=== PATIENT | male | born 1950 | race Caucasian/White ===

== ENCOUNTER 2020-08-12 09:32 | Inpatient (IN) ==
--- NOTE | 2020-07-13 13:08 | PAT Medication Instructions ---
Medication Instructions Date of Service July 13, 2020 Home Medications Medication Instructions Recorded lisinopril 10 mg tablet 10 mg PO DAILY #90 tab 06/24/20 pantoprazole 40 mg tablet,delayed 40 mg PO DAILY #90 tab 06/24/20 release cholecalciferol (vitamin D3) 50 mcg (2,000 unit) capsule 2,000 units PO HS levothyroxine 100 mcg tablet 100 mcg PO QAM lisinopril 10 mg tablet 10 mg PO DAILY pantoprazole 40 mg tablet,delayed release 40 mg PO DAILY DO NOT take the morning of surgery lisinopril 10 mg tablet 10 mg PO DAILY Take morning of surgery With a small sip of water, OTHERWISE NOTHING TO EAT OR DRINK AFTER MIDNIGHT: levothyroxine 100 mcg tablet 100 mcg PO QAM pantoprazole 40 mg tablet,delayed release 40 mg PO DAILY Take evening before surgery cholecalciferol (vitamin D3) 50 mcg (2,000 unit) capsule 2,000 units PO HS Other Notes If you have any questions please call us at [phone] or [phone] or [phone] or [phone]
--- NOTE | 2020-07-14 11:52 | Anesthesiology Consultation ---
Date of Service July 14, 2020 Assessment & Plan (1) Encounter for pre-operative examination: COVID Status: As of 07/14 assessment, patient denies travel to endemic area, known exposure/sick contacts, or symptoms of COVID19. Patient instructed that they and their household members must follow strict social distancing guidelines, wear a mask in public and avoid travel/events/gatherings for 14 days prior to surgery. Preoperative COVID19 testing to be completed prior to surgery per surgeon's arrangements. Patient made aware to self-isolate as much as possible between COVID testing and surgery. Patient is scheduled for his second COVID vaccination the day before his surgery. He was advised to move this date due to the possibility of adverse side effects the day after the injection. LUMBAR SCOLIOSIS -- possible difficult SAB. Chart Review Chart Review: Acceptable Risk for Surgery and Patient seen in Pre Admission Testing Teaching & Discussion Instructed NPO after midnight before surgery, except medications with 15 cc of water. Medication instructions provided according to the PAT guidelines. History Surgery Operation Date: 08/12/20 09:50 Proposed Procedures p Ashok Total Knee Arthroplasty - Torrey Beck MD Height/Weight Height: 5 ft 8 in Weight: 76.5 kg Allergies Allergy/AdvReac Type Severity Reaction Status Date / Time No Known Drug Allergies Allergy Verified 07/13/20 08:16 Medications Home Medications Medication Instructions Recorded Confirmed Last Taken cholecalciferol (vitamin D3) 50 2,000 units PO HS #30 cap 01/25/19 07/13/20 Unknown mcg (2,000 unit) capsule levothyroxine 100 mcg tablet 100 mcg PO QAM #30 tab 12/10/19 07/13/20 Unknown lisinopril 10 mg tablet 10 mg PO DAILY #90 tab 06/24/20 07/13/20 Unknown pantoprazole 40 mg tablet,delayed 40 mg PO DAILY #90 tab 06/24/20 07/13/20 Unknown release Past Medical History Medical History Acid reflux Benign essential hypertension Cervical stenosis of spinal canal History of anxiety 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 Left bundle branch block Osteoarthritis Postoperative hypothyroidism Scoliosis Vitamin D deficiency Exercise / Class Metabolic Activity II 4-5 Yardwork/Stairs/Walk up hill Past Family History Family History (Updated 07/13/20 @ 08:25 by Latasha Villagomez RN) Father Cardiac disorder Brother Clotting disorder Mother Multiple sclerosis Other No family history of adverse response to anesthesia Past Surgical History Surgical History History of colonoscopy History of esophagogastroduodenoscopy (EGD) History of herniorrhaphy INGUINAL History of thyroidectomy, total History of tooth extraction Hx of fusion of cervical spine S/P rotator cuff repair (2013) RT Status post hernia repair Past Anesthesia History No Hx of Anesthesia Complications and No Family Hx of Anesthesia Complications History of PONV No Hx of PONV and No Hx of Motion Sickness Social History Smoking Status: Never smoker Do You Dip or Chew Tobacco: No Hx Alcohol Use: Yes Alcohol type: beer alcohol intake frequency: a few times a week Hx Substance Use: No substance use type: does not use Review of Systems Pt denies any recent chest pain, shortness of breath, palpitations, cough, fever, URI, or uncontrolled acid reflux (controlled with PPI). 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 ENMT Mouth: + chipped teeth (many molars broken/grond down); no dental restorations and no loose teeth Thyromental Distance: < 3.5 Finger Breadths (3) Mallampati Class: II Neck normal visual inspection; neck extension not limited Respiratory normal respiratory effort, lungs clear to auscultation Cardiovascular Rate/Rhythm: regular rate and regular rhythm Heart Sounds: + murmur (I/ systolic) Vessels: no carotid bruit Musculoskeletal Spine: + scoliosis (mild lumbar) Testing Laboratory Results 07/14/20 12:14 07/14/20 12:14 PT 9.9 Seconds (9.0-12.0) 07/14/20 12:14 INR 1.0 (0.9-1.1) 07/14/20 12:14 APTT 27.8 Seconds (21.0-31.0) 07/14/20 12:14 Urine Color Yellow 07/14/20 12:14 Urine Appearance Cloudy (Clear) A 07/14/20 12:14 Urine pH 6.0 (4.5-7.5) 07/14/20 12:14 Ur Specific [facility] 1.009 (1.000-1.030) 07/14/20 12:14 Urine Protein Trace (Negative) H 07/14/20 12:14 Urine Glucose (UA) Negative (Negative) 07/14/20 12:14 Urine Ketones Negative (Negative) 07/14/20 12:14 Urine Nitrite Negative (Negative) 07/14/20 12:14 Ur Leukocyte Esterase Negative (Negative) 07/14/20 12:14 Urine WBC (Auto) >30 /hpf (0-5) H 07/14/20 12:14 Urine RBC (Auto) 0-4 /hpf (0-4) 07/14/20 12:14 U Hyaline Cast (Auto) 5-10 /lpf (0-5) H 07/14/20 12:14 U Epithel Cells (Auto) 5-10 /lpf (0-5) H 07/14/20 12:14 Urine Bacteria (Auto) 1+ (Negative) H 07/14/20 12:14 Electrocardiogram Date: 07/14/20 Sinus bradycardia 55 bpm with premature supraventricular complexes. Incomplete left bundle branch block. Compared with EKG 07/07/2014, premature supraventricular complexes are now present. Chest X-Ray Date: 07/14/20 Findings: + NAD FINDINGS: Cardiomediastinal and hilar silhouettes are unchanged. Suggested hiatal hernia. No pneumothorax, pleural effusion, overt pulmonary edema or airspace c onsolidation to suggest pneumonia. Mild left lung base atelectasis/scarring. Degenerative changes of the shoulders and spine. Cervical spinal fusion hardware. IMPRESSION: No acute process. Echocardiogram Date: 11/29/13 EF: 60% Normal LV size and systolic function. Mild anteroseptal hypokinesis. Normal right heart size and function. No significant valvular stenosis or regurgitation. Mild calculated pulmonary hypertension. Stress Test Date: 11/27/13 Resting EKG showed normal sinus rhythm with left bundle branch block. Nondiagnostic stress EKG. Normal SPECT perfusion imaging. No significant ischemia detected. Normal LV systolic function. Pharmacologic stress nuclear study is normal. The gated study showed the EF was 60-65%.
--- NOTE | 2020-07-14 12:49 | XRay Report ---
XR chest Pre-admission PA/Lat HISTORY: 69 years-old Male pat preoperative exam. No acute chest complaints COMPARISON: Chest radiographs 07/07/2014 TECHNIQUE: PA and lateral views of the chest FINDINGS: Cardiomediastinal and hilar silhouettes are unchanged. Suggested hiatal hernia. No pneumothorax, pleu ral effusion, overt pulmonary edema or airspace consolidation to suggest pneumonia. Mild left lung ba se atelectasis/scarring. Degenerative changes of the shoulders and spine. Cervical spinal fusion hard [place]. IMPRESSION: No acute process. ACT 112: Negative or not required by law. The above report was generated using voice recognition software. It may contain grammatical, syntax o r spelling errors. Electronically signed by: Lakhwinder Mccracken M.D. 07/14/2020 12:48 PM
[2020-07-14 15:03] LABS: Basophils # (auto) 0.03 K/uL (0-0.2); Basophils % (auto) 0.5 %; Eosinophils # (auto) 0.24 K/uL (0-0.5); Eosinophils % (auto) 3.9 %; Hematocrit (blood only) 46.1 % (42-52); Hemoglobin 15.6 g/dL (14.0-18.0); Immature Granulocytes # (auto) 0.01 K/uL (0.00-0.02); Immature Granulocytes % (auto) 0.2 %; Lymphocytes # (auto) 1.69 K/uL (1.2-3.4); Lymphocytes % (auto) 27.4 %; Mean Corpuscular Hemoglobin 31.5 pg (25-34); Mean Corpuscular Hgb Conc 33.8 g/dL (32-36); Mean Corpuscular Volume 93.1 fL (80-100); Mean Platelet Volume 10.3 fL (7.4-10.4); Monocytes # (auto) 0.88 K/uL (0.11-0.59); Monocytes % (auto) 14.3 %; Neutrophils # (auto) 3.32 K/uL (1.4-6.5); Neutrophils % (auto) 53.7 %; Platelet Count 411 K/uL (130-400); RDW Coefficient of Variation 13.4 % (11.5-14.5); RDW Standard Deviation 45.6 fL (36.4-46.3); Red Blood Count 4.95 M/uL (4.7-6.1); White Blood Count 6.17 K/uL (4.8-10.8)
[2020-07-14 15:10] LABS: Appearance Urine Cloudy (Clear); Bacteria Urine Automated 1+ (Negative); Bilirubin Urine Negative (Negative); Blood Urine Negative (Negative); Color Urine Yellow; Glucose Urine UA Negative (Negative); Ketones Urine Negative (Negative); Leukocyte Esterase Urine Negative (Negative); Nitrite Urine Negative (Negative); Protein Urine Trace (Negative); RBC Urine Automated 0-4 /hpf (0-4); Specific Gravity Urine 1.009 (1.000-1.030); Urobilinogen Urine Negative (Negative); WBC Urine Automated >30 /hpf (0-5)
[2020-07-14 15:18] LABS: Partial Thromboplastin Ratio 1.1; Partial Thromboplastin Time 27.8 Seconds (21.0-31.0); Prothrombin Time 9.9 Seconds (9.0-12.0)
--- NOTE | 2020-07-14 15:19 | Electrocardiogram Report ---
Test Reason : Blood Pressure : / mmHG Vent. Rate : 055 BPM Atrial Rate : 055 BPM P-R Int : 202 ms QRS Dur : 110 ms QT Int : 476 ms P-R-T Axes : 060 071 032 degrees QTc Int : 455 ms Sinus bradycardia with Premature supraventricular complexes Incomplete left bundle block Abnormal ECG When compared with ECG of 07-JUL-2014 11:01, Premature supraventricular complexes are now Present Confirmed by David Gaona ([id number]) on 07/14/2020 3:18:36 PM Referred By: Torrey Beck Confirmed By:David Gaona
[2020-07-14 15:31] LABS: Albumin Level 3.7 gm/dl (3.4-5.0); BUN Creatinine Ratio 20.1 (10-20); Calcium 9.4 mg/dl (8.5-10.1); Creatinine Clr Calc Pharmacy 73.1 ml/min; Est GFR (African American) 98.6; Est GFR (Non-African American) 85.1; Potassium 4.4 mmol/L (3.5-5.1)
[2020-07-15 06:06] LABS: Estimated Average Glucose 111 mg/dl; Hemoglobin A1C 5.5 % (4.5-5.6)
--- NOTE | 2020-08-11 18:42 | History & Physical Report ---
Date of Service August 11, 2020 Assessment & Plan (1) Primary osteoarthritis of right knee: Treatment options discussed. He has failed conservative measures as above. He would like to proceed with surgical intervention. Risks, benefits and alternatives to surgery including but not limited to infection, DVT, pain, stiffness, need for revision surgery, damage to blood vessels, damage to nerves, PE, , were discussed with the patient and they wish to proceed. Plan for right total knee arthroplasty at [facility] on 08/13/[address] Beck. Will plan on HHPT post discharge. ASA 81mg BID x 1 mo for DVT prophylaxis. All questions answered. He will follow up post operatively. History of Present Illness Chief Complaint: Right knee pain Primary Care Provider: Michell Romeo, 69 year old male with PMHx significant for HTN, hx of thyroid Ca with hypothyroidism post thyroidectomy, GERD, HTN, OA who presents with ongoing right knee pain. Pain is interfering with his daily activities. He has failed conservative measures including anti-inflammatories and injections. He would like to proceed with knee replacement. Patient denies headaches, sweats, fevers, chills, double vision, blurred vision, cough, sore throat, dysphagia, chest pain, sob, wheezing, n/v/d/c, numbness, tingling, fatigue, urinary symptoms, mood disorders. ROS positive for right knee pain and stiffness. Allergies Allergy/AdvReac Type Severity Reaction Status Date / Time No Known Drug Allergies Allergy Verified 08/10/20 10:20 Home Medications Medication Instructions Recorded Confirmed Type cholecalciferol (vitamin D3) 50 2,000 units PO HS #30 cap 01/25/19 08/10/20 History mcg (2,000 unit) capsule levothyroxine 100 mcg tablet 100 mcg PO QAM #30 tab 12/10/19 08/10/20 History pantoprazole 40 mg tablet,delayed 40 mg PO DAILY #90 tab 06/24/20 08/10/20 Rx release famotidine 40 mg tablet 40 mg PO BID #60 tab 08/10/20 08/10/20 Rx lisinopril 20 mg tablet 20 mg PO DAILY #90 tab 08/10/20 08/10/20 Rx Past Med/Surg History Medical History (Updated 08/11/20 @ 18:40 by Damian Tejada) Acid reflux Benign essential hypertension Cervical stenosis of spinal canal History of anxiety 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 Left bundle branch block Osteoarthritis Osteoarthritis of right knee Postoperative hypothyroidism Scoliosis Vitamin D deficiency Surgical History History of colonoscopy History of esophagogastroduodenoscopy (EGD) History of herniorrhaphy INGUINAL History of thyroidectomy, total History of tooth extraction Hx of fusion of cervical spine S/P rotator cuff repair (2013) RT Status post hernia repair Family History (Updated 07/13/20 @ 08:25 by Latasha Villagomez RN) Father Cardiac disorder Brother Clotting disorder Mother Multiple sclerosis Other No family history of adverse response to anesthesia Social History (Updated 08/10/20 @ 10:25 by Shikha Paz) Smoking Status: Never smoker Second Hand Exposure: No; Do You Dip or Chew Tobacco: No; Tobacco Cessation Education Requested by Patient: No Hx Alcohol Use: Yes Alcohol type: beer Alcohol Intake Frequency: 2-3 x/Week Alcohol Intake Frequency Comment: few a week Hx Substance Use: No Preferred Language: Armenian Visual Impairment: No Limitations Hearing Ability: Normal Bag Mender Required: No Beliefs That Will Affect Care: None marital status: Current Living Situation: Spouse current occupational status: retired current occupation: [employer] How many Children do You have: 3 Feels Safe at Home: Yes Safety Concerns: Feels Safe At This Time caffeine: Yes during the past year weight has: remained stable Dental Care, Regularly: Yes Physical Activity Frequency: Daily Physical Activity Frequency Comment: walking Seatbelt Use: always Sunscreen Use: No Assistive Devices: Glasses Review of Systems All systems reviewed & are unremarkable except as noted in HPI & below Physical Exam Constitutional: well developed and well nourished; no acute distress Eyes: PERRL, conjunctivae normal, anicteric sclerae ENMT: external ear and nose normal, oropharynx normal Neck: trachea midline, no thyromegaly Respiratory: normal respiratory effort, lungs clear to auscultation Cardiovascular: RRR, no murmur, no edema Musculoskeletal: Right knee: Varus alignment. Mild effusion. Tenderness medial joint line and medial patellar facet, lateral patellar facet. Moderate crepitus with ROM. ROM is 0-90 degrees. Positive Rich's. Stable to valgus and varus stress. Skin: no rashes, warm and dry Neurologic: patellar DTR's 2+ bilat, sensation intact Psychiatric: A+Ox3, euthymic affect Results & Data ([facility]) Laboratory Results Lab Results 07/14/20 07/14/20 07/14/20 Range/Units 12:14 12:14 12:14 WBC 6.17 (4.8-10.8) K/uL RBC 4.95 (4.7-6.1) M/uL Hgb 15.6 (14.0-18.0) g/dL Hct 46.1 (42-52) % MCV 93.1 (80-100) fL MCH 31.5 (25-34) pg MCHC 33.8 (32-36) g/dL RDW Std Deviation 45.6 (36.4-46.3) fL RDW Coeff of Alexus 13.4 (11.5-14.5) % Plt Count 411 H (130-400) K/uL MPV 10.3 (7.4-10.4) fL Immature Gran % (Auto) 0.2 % Neut % (Auto) 53.7 % Lymph % (Auto) 27.4 % [place] % (Auto) 14.3 % Eos % (Auto) 3.9 % Baso % (Auto) 0.5 % Neut # (Auto) 3.32 (1.4-6.5) K/uL Lymph # (Auto) 1.69 (1.2-3.4) K/uL [place] # (Auto) 0.88 H (0.11-0.59) K/uL Eos # (Auto) 0.24 (0-0.5) K/uL Baso # (Auto) 0.03 (0-0.2) K/uL Immature Gran # (Auto) 0.01 (0.00-0.02) K/uL PT 9.9 (9.0-12.0) Seconds INR 1.0 (0.9-1.1) APTT 27.8 (21.0-31.0) Seconds PTT Ratio 1.1 Sodium (136-145) mmol/L Potassium (3.5-5.1) mmol/L Chloride (98-107) mmol/L Carbon Dioxide (21-32) mmol/L Anion Gap (3-11) BUN (7-18) mg/dl Creatinine (0.6-1.4) mg/dl Est Cr Clr Drug Dosing ml/min Est GFR ( Amer) Est GFR (Non-Af Amer) BUN/Creatinine Ratio (10-20) Glucose (70-99) mg/dl Estimat Average Glucose mg/dl Hemoglobin A1c (4.5-5.6) % Calcium (8.5-10.1) mg/dl Albumin (3.4-5.0) gm/dl Urine Color Urine Appearance (Clear) Urine pH (4.5-7.5) Ur Specific [place] (1.000-1.030) Urine Protein (Negative) Urine Glucose (UA) (Negative) Urine Ketones (Negative) Urine Blood (Negative) Urine Nitrite (Negative) Urine Bilirubin (Negative) Urine Urobilinogen (Negative) Ur Leukocyte Esterase (Negative) Urine WBC (Auto) (0-5) /hpf Urine RBC (Auto) (0-4) /hpf U Hyaline Cast (Auto) (0-5) /lpf U Epithel Cells (Auto) (0-5) /lpf Urine Bacteria (Auto) (Negative) Blood Type A Positive Antibody Screen NEGATIVE 07/14/20 07/14/20 07/14/20 Range/Units 12:14 12:14 12:14 WBC (4.8-10.8) K/uL RBC (4.7-6.1) M/uL Hgb (14.0-18.0) g/dL Hct (42-52) % MCV (80-100) fL MCH (25-34) pg MCHC (32-36) g/dL RDW Std Deviation (36.4-46.3) fL RDW Coeff of Alexus (11.5-14.5) % Plt Count (130-400) K/uL MPV (7.4-10.4) fL Immature Gran % (Auto) % Neut % (Auto) % Lymph % (Auto) % [place] % (Auto) % Eos % (Auto) % Baso % (Auto) % Neut # (Auto) (1.4-6.5) K/uL Lymph # (Auto) (1.2-3.4) K/uL [place] # (Auto) (0.11-0.59) K/uL Eos # (Auto) (0-0.5) K/uL Baso # (Auto) (0-0.2) K/uL Immature Gran # (Auto) (0.00-0.02) K/uL PT (9.0-12.0) Seconds INR (0.9-1.1) APTT (21.0-31.0) Seconds PTT Ratio Sodium 136 (136-145) mmol/L Potassium 4.4 (3.5-5.1) mmol/L Chloride 103 (98-107) mmol/L Carbon Dioxide 30 (21-32) mmol/L Anion Gap 3.0 (3-11) BUN 18 (7-18) mg/dl Creatinine 0.91 (0.6-1.4) mg/dl Est Cr Clr Drug Dosing 73.1 ml/min Est GFR ( Amer) 98.6 Est GFR (Non-Af Amer) 85.1 BUN/Creatinine Ratio 20.1 H (10-20) Glucose 85 (70-99) mg/dl Estimat Average Glucose 111 mg/dl Hemoglobin A1c 5.5 (4.5-5.6) % Calcium 9.4 (8.5-10.1) mg/dl Albumin 3.7 (3.4-5.0) gm/dl Urine Color Yellow Urine Appearance Cloudy A (Clear) Urine pH 6.0 (4.5-7.5) Ur Specific [place] 1.009 (1.000-1.030) Urine Protein Trace H (Negative) Urine Glucose (UA) Negative (Negative) Urine Ketones Negative (Negative) Urine Blood Negative (Negative) Urine Nitrite Negative (Negative) Urine Bilirubin Negative (Negative) Urine Urobilinogen Negative (Negative) Ur Leukocyte Esterase Negative (Negative) Urine WBC (Auto) >30 H (0-5) /hpf Urine RBC (Auto) 0-4 (0-4) /hpf U Hyaline Cast (Auto) 5-10 H (0-5) /lpf U Epithel Cells (Auto) 5-10 H (0-5) /lpf Urine Bacteria (Auto) 1+ H (Negative) Blood Type Antibody Screen Diagnostic Findings Right knee: severe endstage osteoarthritis of the knees, bone on bone with medial subluxation of the femur on the tibia, tricompartmental osteophytes, and subchondral sclerosis and subchondral cystic changes.
[~2020-08-12 09:32] MED LIST: ACETAMINOPHEN 500 MG TAB PO SCH; BUPIVACAINE 0.25% 30 ML VIAL ONE; BUPIVACAINE 0.5 % 5 MG/1 ML PF 10ML VIAL ONE; CeleBREX 200 MG CAP PO SCH; DEXAMETHASONE SOD INJ 4 MG/ML VIAL ONE; EPINEPHrine INJ 1 MG/ML AMP ONE; FAMOTIDINE 20 MG TAB PO SCH; GABAPENTIN 300 MG CAP PO SCH; LR 500ML BOLUS, THEN 15ML/HR IV SCH; METOCLOPRAMIDE HCL 10 MG TABLET PO SCH; ROPIVACAINE 0.5% HCL/PF 150 MG, BUPIVACAINE 0.75% MPF 20 ML, EPINEPHrine 30MG/30ML (OR ... INSTIL SCH; TRANEXAMIC ACID 1,000 MG **IV Intra-op IV SCH; TRANEXAMIC ACID 1,000 MG **IV Pre-op IV SCH; ceFAZolin 1000MG 1,000 MG/7.5 ML SYR IV SCH; dexAMETHasone 4 MG TAB PO SCH
--- NOTE | 2020-08-12 09:54 | History & Physical Bridge Note ---
Date of Service August 12, 2020 History & Physical Bridge Note I have examined the patient, reviewed the History & Physical and in the interval since the performance of the History & Physical I have noted the following changes of clinical significance;small healed old pretibial abrasion no erythema drainage no signs of infection.
[2020-08-12] MEDS ORDERED: fentaNYL citrate 100 MCG/2 ML VIAL ONE (10:27)
[2020-08-12] MEDS ORDERED: MIDAZOLAM HCL 1 MG/ML 2ML VIAL ONE (10:27)
[2020-08-12] MEDS ORDERED: ONDANSETRON INJ 2 MG/ML 2 ML VIAL IV PRN ×2 (10:57→15:58)
[2020-08-12] MEDS ORDERED: fentaNYL citrate 100 MCG/2 ML VIAL IV PRN (10:57)
[2020-08-12] MEDS ORDERED: ATROPINE SULFATE 0.1 MG/ML 10ML SYR IV PRN (10:57)
[2020-08-12] MEDS ORDERED: ePHEDrine sulfate 50 MG/ML AMP IV PRN (10:57)
[2020-08-12] MEDS ORDERED: ORTHO JOINT ANESTHETIC ONE (10:59)
[2020-08-12] MEDS ORDERED: PROPOFOL IV EMULSION 10 MG/ML 20 ML VIAL IV ONE ×2 (12:37)
[2020-08-12] MEDS ORDERED: ONDANSETRON INJ 2 MG/ML 2 ML VIAL ONE (12:37)
[2020-08-12] MEDS ORDERED: LIDOCAINE HCL 2% 2 ML VIAL/AMP(20MG/ML) INFIL ONE (12:37)
--- NOTE | 2020-08-12 14:01 | Post Operative Brief Note ---
Immediate Post Op Note v1 Date of Surgery August 12, 2020 Pre & Post Diagnosis Operation Date: 08/12/20 11:40 Pre-Op Diagnosis: Right Knee Primary Osteoatrhritis Post-Op Diagnosis: Right Knee Primary Osteoatrhritis I identified the patient and participated in the time-out.: Yes Procedure Operation Date: 08/12/20 11:40 Actual Procedures p Right Total Knee Arthroplasty(Right) - Torrey Beck MD Surgeon Torrey Beck MD Vice President Fixed Income Abisai TERRY Estimated Blood Loss 5 Findings Consistent with Post-Op Diagnosis Specimens Bone cuts Drains Hemovac Drain Anesthesia Type MAC Spinal Regional Complications none Disposition Accompanied Patient To Recovery: No Disposition: Recovery Room Overlapping Procedure I was present for: the critical portions of procedure. Back up surgeon: was not required during procedure.
--- NOTE | 2020-08-12 14:10 | Operative Report ---
Post Operative Report Pre & Post Diagnosis Operation Date: 08/12/20 11:40 Pre-Op Diagnosis: Right Knee Primary Osteoatrhritis Post-Op Diagnosis: Right Knee Primary Osteoatrhritis I identified the patient and participated in the time-out.: Yes Procedure Operation Date: 08/12/20 11:40 Actual Procedures p Right Total Knee Arthroplasty(Right), superficial wound VAC application- Torrey Beck MD Surgeon Torrey Beck MD Marketing Content Manager Abisai TERRY Estimated Blood Loss 5 Findings Consistent with Post-Op Diagnosis Specimens Bone cuts Drains 2 Hemovac Anesthesia Type MAC Spinal Regional Complications none Disposition Accompanied Patient To Recovery: No Indications 69-year-old male with a chronic progressive osteoarthritis in his right knee. Radiographs demonstrated varus knees [id number] medial and lateral compartments with subluxation medially of the femur on the tibia. Description of Procedure Patient was taken to the operating room placed supine on the operating table and anesthetized under spinal MAC regional anesthesia. Exam under anesthesia demonstrated slight flexion contracture but good knee flexion and significant instability with joint space loss medially with increased valgus stress due to joint space loss there and positive Blanquita exam no endpoint consistent with chronic ACL tear. Patient had a thin leg.. A pneumatic tourniquet was placed about the thigh of the right lower extremity. The right lower extremity was prepped and draped in usual fashion. The leg was elevated exsanguinated with an Esmarch bandage and the pneumatic was raised to 300 mm mercury. An anterior incision was made across the right knee. The skin was incised longitudinally subcutaneous flaps were elevated and an incision was made through the medial retinaculum extending up into the mid third of the quadriceps tendon and extended down to the medial tibial tubercle. Intra-articular findings demonstrated bicompartmental severe osteoarthritis [id number] with eburnated bone medial and lateral compartments with complete stenosis of the notch absent ACL chronic medial and lateral meniscus tears. Collection of loose bodies in the the lateral meniscus area anterolateral knee.. The knee was exposed by excising the infrapatellar fat pad, excising the meniscal remnants and all loose bodies and osteophytes were excised. Any inflamed synovial tissue was resected. The fat pad over the anterior femur was resected for placement of the component in that area. The lateral synovial bands were released. The femur was exposed. The custom femoral cutting block was pinned in position. The distal femoral cutting block was applied. The distal femoral cut was made with the oscillating saw. The size 7, 4-in-1 cutting block was placed. The anterior and posterior chamfer cuts were made. The knee was extended and a subperiosteal peel lateral release was performed around the patella. The patella width was measured and width was reproduced using freehand cut technique. The 32 x 8.5 millimeter symmetrical patella was used. 3 drill holes are made for the pegs. The tibia was exposed. A custom tibial cutting block was positioned and drill holes were made for the cutting guide. Cutting guide was placed and the proximal cut was made with the oscillating saw. All osteophytes were resected. The lamina bottom cager was used to assess ligamentous balance and the ligaments were balanced in extension and flexion. The tibia was reexposed and measured for a size E tibial component. This was externally rotated in line with the tibial tubercle and the fixation pins were drilled. The proximal tibia was fashioned with the drill and punch. The size 7 right CR femoral trial was inserted. The trial MC inserts were used. The 12 mm insert gave balanced ligaments through full range of motion. The patella tracked centrally. the trials were removed. The orthomix anesthetic cocktail was injected per protocol. The knee was then copiously irrigated with pulsatile lavage saline solution. The final components were cemented with Simplex cement. The final components were [employer] persona 7 right CR standard femoral component, E right tibial component, 12 MC polyethylene, 32 x 8.5 symmetrical patella. After the cement cured with the knee in full extension the Betadine soak was used per protocol. The knee joint was copiously irrigated with pulsatile lavage saline solution. 2 drains were brought out laterally and connected to a Hemovac. The quadriceps tendon and medial retinaculum were closed with interrupted [id number] #1 Vicryl sutures. The knee was taken through a full range of motion and repair was secure. The subcutaneous tissues were closed with 2-0 Vicryl sutures and skin was closed with ellen. Karlie and Acticoat superficial wound VAC was applied and the patient tolerated the procedure well. Abisai TERRY my physician library circulation assistant, assisted in soft tissue retraction instrument management leg positioning the closure and will participate in the postoperative care of the patient. I attest to the content of the Intraoperative Record and any orders documented therein. Any exceptions are noted below.
--- NOTE | 2020-08-12 15:01 | XRay Report ---
XR knee RT 1 or 2V routine CLINICAL HISTORY: Surgical Post Op COMPARISON: None FINDINGS: Alignment of the total right knee arthroplasty is anatomic. There is no periprosthetic fra cture or unexpected radiopaque foreign body. There are drains and skin ellen. IMPRESSION: Expected findings following total right knee arthroplasty. ACT 112: Negative or not required by law. Electronically signed by: Winston Crooks M.D. 08/12/2020 2:59 PM
--- NOTE | 2020-08-12 15:43 | Anesthesiology Progress Note ---
Date of Service August 12, 2020 Anesthesia Post Procedure Vital Signs Vital Signs: Temp Pulse Pulse Resp BP Pulse Ox 08/12/20 15:15 56 L 16 112/66 94 08/12/20 15:05 54 L 16 107/60 93 08/12/20 14:55 36.5 C 55 L 16 105/64 94 08/12/20 14:45 55 L 16 110/58 L 93 08/12/20 14:35 56 L 16 106/60 94 08/12/20 14:29 36.3 C L 61 16 99/58 L 94 08/12/20 10:30 36.9 C 58 L 20 170/89 H 96 08/12/20 10:08 36.7 C 64 20 185/97 H 98 Pain Intensity Right Knee: Pain Intensity: 2 Transfer of Care Handoff Completed per policy Notes Mental Status: alert / awake / arousable Patient Amnestic to Procedure: Yes Nausea / Vomiting: adequately controlled Pain: adequately controlled Airway Patency, RR, SpO2: stable & adequate BP & HR: stable & adequate Hydration State: stable & adequate Anesthetic Complications: no major complications apparent
[2020-08-12] MEDS ORDERED: HYDROmorphone INJ 0.5 MG/0.5 ML SYR IV PRN (15:58)
[2020-08-12] MEDS ORDERED: NALOXONE HCL 0.4 MG/1 ML VIAL/CARP IV PRN (15:58)
[2020-08-12] MEDS ORDERED: MAGNESIUM HYDROXIDE SUSP 30 ML UDC PO PRN (15:58)
[2020-08-12] MEDS ORDERED: oxyCODONE HCL IR 5 MG TAB (IMMEDIATE RELEASE) PO PRN (15:58)
[2020-08-12] MEDS ORDERED: bisacodyL 10 MG SUPP PR PRN (15:58)
[2020-08-12] MEDS: SODIUM CHLORIDE 0.9% 1000ML 1,000 ML IV SCH (16:13)
[2020-08-12] MEDS: CHOLECALCIFEROL 1,000 UNITS 25 MCG TAB PO SCH (20:14)
[2020-08-12] MEDS: ceFAZolin 1000MG 1,000 MG/7.5 ML SYR IV SCH (20:15)
[2020-08-12] MEDS: DOCUSATE SODIUM 100 MG CAP PO SCH (20:15)
[2020-08-12] MEDS: ACETAMINOPHEN 500 MG TAB PO SCH (20:15)
[2020-08-12] MEDS: SENNA 8.6 MG TAB PO SCH (20:15)
[2020-08-12] MEDS: FAMOTIDINE 40 MG TABLET PO SCH (20:16)
[2020-08-12] MEDS: ASPIRIN 81 MG ECTAB PO SCH (20:17)
[2020-08-13] MEDS: ceFAZolin 1000MG 1,000 MG/7.5 ML SYR IV SCH (03:37)
[2020-08-13] MEDS: ACETAMINOPHEN 500 MG TAB PO SCH ×3 (05:46→21:05)
[2020-08-13] MEDS: LEVOTHYROXINE SODIUM 100 MCG TABLET PO SCH (05:46)
[2020-08-13 06:40] LABS: Hematocrit (blood only) 39.5 % (42-52); Hemoglobin 13.6 g/dL (14.0-18.0); Mean Corpuscular Hemoglobin 31.1 pg (25-34); Mean Corpuscular Hgb Conc 34.4 g/dL (32-36); Mean Corpuscular Volume 90.4 fL (80-100); Mean Platelet Volume 9.6 fL (7.4-10.4); Platelet Count 309 K/uL (130-400); RDW Coefficient of Variation 13.4 % (11.5-14.5); RDW Standard Deviation 44.7 fL (36.4-46.3); Red Blood Count 4.37 M/uL (4.7-6.1); White Blood Count 14.75 K/uL (4.8-10.8)
[2020-08-13] MEDS: SODIUM CHLORIDE 0.9% 1000ML 1,000 ML IV SCH (06:53)
[2020-08-13 07:21] LABS: BUN Creatinine Ratio 24.1 (10-20); Calcium 8.2 mg/dl (8.5-10.1); Creatinine Clr Calc Pharmacy 75.6 ml/min; Est GFR (African American) 100.9; Potassium 4.2 mmol/L (3.5-5.1)
--- NOTE | 2020-08-13 07:23 | Orthopedic Progress Note ---
Date of Service August 13, 2020 Assessment & Plan (1) S/P total knee arthroplasty: POD#1 Right TKA -PT/OT -Pain management -DVT prophylaxis-SCDs,. TEDs, ASA 81mg BID -AM labs-hemoglobin at 13.6 from 15.6 preop. Mild leukocytosis likely reactive due to surgical stress and steroids -D/C planning-home with HHPT possibly later today if PT goes well. Admission and Anticipated Discharge Date Admission Date: August 12, 2020 Subjective Patient is POD#1 from right TKA. He is doing well this morning, pain well controlled. Has been up ambulating. Denies chest pain, sob, headache, fever, n/v/d. Review of Systems Review of Systems: All systems reviewed & are unremarkable except as noted in HPI & below Physical Exam Physical Exam: Right knee dressing is c/d/i. MADELAINE in place. Hemovac on suction. Mild weakness with dorsiflexion, toes are mobile. No calf tenderness. Distally n/v status and sensation are intact. Constitutional: well developed and well nourished; no acute distress Results & Data ([facility]) Vital Signs (Past 12 Hours) Vital Signs Temp Pulse Resp BP Pulse Ox 08/13/20 03:03 36.5 C 55 L 16 113/65 93 08/12/20 23:07 36.5 C 56 L 16 109/66 93 Laboratory Results Lab Results 07/14/20 07/14/20 07/14/20 Range/Units 12:14 12:14 12:14 WBC 6.17 (4.8-10.8) K/uL RBC 4.95 (4.7-6.1) M/uL Hgb 15.6 (14.0-18.0) g/dL Hct 46.1 (42-52) % MCV 93.1 (80-100) fL MCH 31.5 (25-34) pg MCHC 33.8 (32-36) g/dL RDW Std Deviation 45.6 (36.4-46.3) fL RDW Coeff of Alexus 13.4 (11.5-14.5) % Plt Count 411 H (130-400) K/uL MPV 10.3 (7.4-10.4) fL Immature Gran % (Auto) 0.2 % Neut % (Auto) 53.7 % Lymph % (Auto) 27.4 % Becker % (Auto) 14.3 % Eos % (Auto) 3.9 % Baso % (Auto) 0.5 % Neut # (Auto) 3.32 (1.4-6.5) K/uL Lymph # (Auto) 1.69 (1.2-3.4) K/uL Becker # (Auto) 0.88 H (0.11-0.59) K/uL Eos # (Auto) 0.24 (0-0.5) K/uL Baso # (Auto) 0.03 (0-0.2) K/uL Immature Gran # (Auto) 0.01 (0.00-0.02) K/uL PT 9.9 (9.0-12.0) Seconds INR 1.0 (0.9-1.1) APTT 27.8 (21.0-31.0) Seconds PTT Ratio 1.1 Sodium (136-145) mmol/L Potassium (3.5-5.1) mmol/L Chloride (98-107) mmol/L Carbon Dioxide (21-32) mmol/L Anion Gap (3-11) BUN (7-18) mg/dl Creatinine (0.6-1.4) mg/dl Est Cr Clr Drug Dosing ml/min Est GFR ( Amer) Est GFR (Non-Af Amer) BUN/Creatinine Ratio (10-20) Glucose (70-99) mg/dl Estimat Average Glucose mg/dl Hemoglobin A1c (4.5-5.6) % Calcium (8.5-10.1) mg/dl Albumin (3.4-5.0) gm/dl Urine Color Urine Appearance (Clear) Urine pH (4.5-7.5) Ur Specific [place] (1.000-1.030) Urine Protein (Negative) Urine Glucose (UA) (Negative) Urine Ketones (Negative) Urine Blood (Negative) Urine Nitrite (Negative) Urine Bilirubin (Negative) Urine Urobilinogen (Negative) Ur Leukocyte Esterase (Negative) Urine WBC (Auto) (0-5) /hpf Urine RBC (Auto) (0-4) /hpf U Hyaline Cast (Auto) (0-5) /lpf U Epithel Cells (Auto) (0-5) /lpf Urine Bacteria (Auto) (Negative) COVID-19 Eval Order SARS-CoV-2, RNA, NAAT (NEGATIVE) Blood Type A Positive Antibody Screen NEGATIVE 07/14/20 07/14/20 07/14/20 Range/Units 12:14 12:14 12:14 WBC (4.8-10.8) K/uL RBC (4.7-6.1) M/uL Hgb (14.0-18.0) g/dL Hct (42-52) % MCV (80-100) fL MCH (25-34) pg MCHC (32-36) g/dL RDW Std Deviation (36.4-46.3) fL RDW Coeff of Alexus (11.5-14.5) % Plt Count (130-400) K/uL MPV (7.4-10.4) fL Immature Gran % (Auto) % Neut % (Auto) % Lymph % (Auto) % Becker % (Auto) % Eos % (Auto) % Baso % (Auto) % Neut # (Auto) (1.4-6.5) K/uL Lymph # (Auto) (1.2-3.4) K/uL Becker # (Auto) (0.11-0.59) K/uL Eos # (Auto) (0-0.5) K/uL Baso # (Auto) (0-0.2) K/uL Immature Gran # (Auto) (0.00-0.02) K/uL PT (9.0-12.0) Seconds INR (0.9-1.1) APTT (21.0-31.0) Seconds PTT Ratio Sodium 136 (136-145) mmol/L Potassium 4.4 (3.5-5.1) mmol/L Chloride 103 (98-107) mmol/L Carbon Dioxide 30 (21-32) mmol/L Anion Gap 3.0 (3-11) BUN 18 (7-18) mg/dl Creatinine 0.91 (0.6-1.4) mg/dl Est Cr Clr Drug Dosing 73.1 ml/min Est GFR ( Amer) 98.6 Est GFR (Non-Af Amer) 85.1 BUN/Creatinine Ratio 20.1 H (10-20) Glucose 85 (70-99) mg/dl Estimat Average Glucose 111 mg/dl Hemoglobin A1c 5.5 (4.5-5.6) % Calcium 9.4 (8.5-10.1) mg/dl Albumin 3.7 (3.4-5.0) gm/dl Urine Color Yellow Urine Appearance Cloudy A (Clear) Urine pH 6.0 (4.5-7.5) Ur Specific [place] 1.009 (1.000-1.030) Urine Protein Trace H (Negative) Urine Glucose (UA) Negative (Negative) Urine Ketones Negative (Negative) Urine Blood Negative (Negative) Urine Nitrite Negative (Negative) Urine Bilirubin Negative (Negative) Urine Urobilinogen Negative (Negative) Ur Leukocyte Esterase Negative (Negative) Urine WBC (Auto) >30 H (0-5) /hpf Urine RBC (Auto) 0-4 (0-4) /hpf U Hyaline Cast (Auto) 5-10 H (0-5) /lpf U Epithel Cells (Auto) 5-10 H (0-5) /lpf Urine Bacteria (Auto) 1+ H (Negative) COVID-19 Eval Order SARS-CoV-2, RNA, NAAT (NEGATIVE) Blood Type Antibody Screen 08/12/20 08/12/20 08/13/20 Range/Units Unknown Unknown 05:59 WBC 14.75 H (4.8-10.8) K/uL RBC 4.37 L (4.7-6.1) M/uL Hgb 13.6 L (14.0-18.0) g/dL Hct 39.5 L (42-52) % MCV 90.4 (80-100) fL MCH 31.1 (25-34) pg MCHC 34.4 (32-36) g/dL RDW Std Deviation 44.7 (36.4-46.3) fL RDW Coeff of Alexus 13.4 (11.5-14.5) % Plt Count 309 (130-400) K/uL MPV 9.6 (7.4-10.4) fL Immature Gran % (Auto) % Neut % (Auto) % Lymph % (Auto) % Becker % (Auto) % Eos % (Auto) % Baso % (Auto) % Neut # (Auto) (1.4-6.5) K/uL Lymph # (Auto) (1.2-3.4) K/uL Becker # (Auto) (0.11-0.59) K/uL Eos # (Auto) (0-0.5) K/uL Baso # (Auto) (0-0.2) K/uL Immature Gran # (Auto) (0.00-0.02) K/uL PT (9.0-12.0) Seconds INR (0.9-1.1) APTT (21.0-31.0) Seconds PTT Ratio Sodium (136-145) mmol/L Potassium (3.5-5.1) mmol/L Chloride (98-107) mmol/L Carbon Dioxide (21-32) mmol/L Anion Gap (3-11) BUN (7-18) mg/dl Creatinine (0.6-1.4) mg/dl Est Cr Clr Drug Dosing ml/min Est GFR ( Amer) Est GFR (Non-Af Amer) BUN/Creatinine Ratio (10-20) Glucose (70-99) mg/dl Estimat Average Glucose mg/dl Hemoglobin A1c (4.5-5.6) % Calcium (8.5-10.1) mg/dl Albumin (3.4-5.0) gm/dl Urine Color Urine Appearance (Clear) Urine pH (4.5-7.5) Ur Specific [place] (1.000-1.030) Urine Protein (Negative) Urine Glucose (UA) (Negative) Urine Ketones (Negative) Urine Blood (Negative) Urine Nitrite (Negative) Urine Bilirubin (Negative) Urine Urobilinogen (Negative) Ur Leukocyte Esterase (Negative) Urine WBC (Auto) (0-5) /hpf Urine RBC (Auto) (0-4) /hpf U Hyaline Cast (Auto) (0-5) /lpf U Epithel Cells (Auto) (0-5) /lpf Urine Bacteria (Auto) (Negative) COVID-19 Eval [facility] SARS-CoV-2, RNA, NAAT NEGATIVE (NEGATIVE) Blood Type Antibody Screen 08/13/20 Range/Units 05:59 WBC (4.8-10.8) K/uL RBC (4.7-6.1) M/uL Hgb (14.0-18.0) g/dL Hct (42-52) % MCV (80-100) fL MCH (25-34) pg MCHC (32-36) g/dL RDW Std Deviation (36.4-46.3) fL RDW Coeff of Alexus (11.5-14.5) % Plt Count (130-400) K/uL MPV (7.4-10.4) fL Immature Gran % (Auto) % Neut % (Auto) % Lymph % (Auto) % Becker % (Auto) % Eos % (Auto) % Baso % (Auto) % Neut # (Auto) (1.4-6.5) K/uL Lymph # (Auto) (1.2-3.4) K/uL Becker # (Auto) (0.11-0.59) K/uL Eos # (Auto) (0-0.5) K/uL Baso # (Auto) (0-0.2) K/uL Immature Gran # (Auto) (0.00-0.02) K/uL PT (9.0-12.0) Seconds INR (0.9-1.1) APTT (21.0-31.0) Seconds PTT Ratio Sodium 140 (136-145) mmol/L Potassium 4.2 (3.5-5.1) mmol/L Chloride 111 H (98-107) mmol/L Carbon Dioxide 24 (21-32) mmol/L Anion Gap 5.0 (3-11) BUN 21 H (7-18) mg/dl Creatinine 0.88 (0.6-1.4) mg/dl Est Cr Clr Drug Dosing 75.6 ml/min Est GFR ( Amer) 100.9 Est GFR (Non-Af Amer) 87.0 BUN/Creatinine Ratio 24.1 H (10-20) Glucose 113 H (70-99) mg/dl Estimat Average Glucose mg/dl Hemoglobin A1c (4.5-5.6) % Calcium 8.2 L (8.5-10.1) mg/dl Albumin (3.4-5.0) gm/dl Urine Color Urine Appearance (Clear) Urine pH (4.5-7.5) Ur Specific [place] (1.000-1.030) Urine Protein (Negative) Urine Glucose (UA) (Negative) Urine Ketones (Negative) Urine Blood (Negative) Urine Nitrite (Negative) Urine Bilirubin (Negative) Urine Urobilinogen (Negative) Ur Leukocyte Esterase (Negative) Urine WBC (Auto) (0-5) /hpf Urine RBC (Auto) (0-4) /hpf U Hyaline Cast (Auto) (0-5) /lpf U Epithel Cells (Auto) (0-5) /lpf Urine Bacteria (Auto) (Negative) COVID-19 Eval Order SARS-CoV-2, RNA, NAAT (NEGATIVE) Blood Type Antibody Screen (1) S/P total knee arthroplasty Laterality: right Qualified Code(s): Z96.651 - Presence of right artificial knee joint
[2020-08-13] MEDS: ASPIRIN 81 MG ECTAB PO SCH ×2 (08:29→21:05)
[2020-08-13] MEDS: MULTIVITAMIN TAB PO SCH (08:29)
[2020-08-13] MEDS: lisinopril 20 MG TAB PO SCH (08:29)
[2020-08-13] MEDS: FAMOTIDINE 40 MG TABLET PO SCH ×2 (08:30→21:05)
[2020-08-13] MEDS: PANTOprazole 40 MG TAB PO SCH (08:30)
[2020-08-13] MEDS: DOCUSATE SODIUM 100 MG CAP PO SCH ×2 (08:30→21:05)
--- NOTE | 2020-08-13 11:29 | Hospitalist Consultation ---
Date of Consultation August 13, 2020 Assessment & Plan (1) S/P total knee arthroplasty: Mr. 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 His surgery went well, no reported complications. At this point, his knee pain is very well controlled. He continues to have bloody drainage from his knee, but has good active range of motion with full extension and flexion of the right knee to > 90 the degrees. Patient denies any postoperative nausea or vomiting. He is tolerating his current analgesic regimen without adverse side effects. Patient is participating with physical therapy and occupational therapy. He has been ambulating in the hallways without difficulty. His knee pain is much better since having it replaced although he does have some soreness and stiffness related to the surgery itself. Patient remains medically stable following his right TKA. (2) Left bundle branch block: -- Incomplete LBBB. -- Patient was initially diagnosed with a conduction delay in 2014. -- He underwent evaluation at that time including a normal Echocardiogram. -- Patient denies any limiting cardiopulmonary symptoms today time. (3) Postoperative anemia: Today's Hgb is 13.6 gm/dl. -- Asymptomatic and to be expected following TKA. (4) Benign essential hypertension: BP's have been well controlled. -- Continue Lisinopril 20 mg daily. -- Continue Aspirin 81 mg daily for primary prevention based on his cardiac risk factors. (5) Postoperative hypothyroidism: History of papillary thyroid cancer s/p thyroidectomy. -- Continue Levothyroxine 100 mcg daily. (6) Prediabetes: Supervising Physician Co-Signing Physician Notes Attending note: patient seen and examined with Jamel Ruiz PA-C. I agree with consultation. patient doing well after knee replacement labs reviewed, Cr and electrolytes stable, Hb stable, WBC up, likely reactive LBBB: chronic issue HTN: BP stable management per ortho, medicine will sign off for now, please [place] Text Dr. Rahman if there are any new issues that arise History of Present Illness Reason for Consultation: -- Medical Management. -- POD#1 Right TKA. -- Hypertension. -- Pre-diabetes. Requesting Physician: Torrey Beck MD Attending Physician: Mt Rahman History of Present Illness Mr. 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 His surgery went well, no reported complications. At this point, his knee pain is very well controlled. He continues to have bloody drainage from his knee, but has good active range of motion with full extension and flexion of the right knee to > 90 the degrees. Patient denies any postoperative nausea or vomiting. He is tolerating his current analgesic regimen without adverse side effects. Patient was initially diagnosed with a conduction delay in 2014. He underwent evaluation at that time including a normal Echocardiogram to his recollection. He has not had any further cardiac studies beyond that. Until his right knee slowed him down and his activities, he was always able to do what ever he wanted to physically. Patient denies any limiting cardiopulmonary symptoms today time. He specifically denies any exertional chest pain, heaviness, tightness, pressure, or discomfort. He denies any exertional neck, jaw, back, or arm pain. He denies any shortness of breath, unusual dyspnea on exertion, orthopnea, or PND. He has not had any palpitations, syncope, or near syncope. Patient is participating with physical therapy and occupational therapy. He has been ambulating in the hallways without difficulty. His knee pain is much better since having it replaced although he does have some soreness and stiffness related to the surgery itself. Allergies Allergy/AdvReac Type Severity Reaction Status Date / Time No Known Drug Allergies Allergy Verified 08/12/20 10:05 Home Medications Medication Instructions Recorded Confirmed Type cholecalciferol (vitamin D3) 50 2,000 units PO HS #30 cap 01/25/19 08/12/20 History mcg (2,000 unit) capsule levothyroxine 100 mcg tablet 100 mcg PO QAM #30 tab 12/10/19 08/12/20 History pantoprazole 40 mg tablet,delayed 40 mg PO DAILY #90 tab 06/24/20 08/12/20 Rx release famotidine 40 mg tablet 40 mg PO BID #60 tab 08/10/20 08/12/20 Rx lisinopril 20 mg tablet 20 mg PO DAILY #90 tab 08/10/20 08/12/20 Rx acetaminophen 1,000 mg PO Q8 #60 tab 08/13/20 Rx aspirin 81 mg PO BID #60 tab 08/13/20 Rx celecoxib [Celebrex] 200 mg PO BID #60 cap 08/13/20 Rx oxycodone 5 - 10 mg PO .Q4h-6h PRN #30 tab 08/13/20 Rx MDD 6 Patient History Medical History Acid reflux Benign essential hypertension Cervical stenosis of spinal canal History of anxiety 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 Left bundle branch block Osteoarthritis Osteoarthritis of right knee Postoperative hypothyroidism Scoliosis Vitamin D deficiency Surgical History History of colonoscopy History of esophagogastroduodenoscopy (EGD) History of herniorrhaphy INGUINAL History of thyroidectomy, total History of tooth extraction Hx of fusion of cervical spine S/P rotator cuff repair (2013) RT Status post hernia repair Family History Father Cardiac disorder Brother Clotting disorder Mother Multiple sclerosis Other No family history of adverse response to anesthesia Social History Smoking Status: Never smoker Second Hand Exposure: No; Do You Dip or Chew Tobacco: No; Hx Alcohol Use: Yes Alcohol type: beer Alcohol Intake Frequency: 2-3 x/Week Alcohol Intake Frequency Comment: few a week Hx Substance Use: No Preferred Language: Filipino Communication Ability: Effective Visual Impairment: No Limitations Hearing Ability: Normal Manager Sterile Required: No Beliefs That Will Affect Care: None marital status: Current Living Situation: Spouse current occupational status: retired current occupation: [employer] How many Children do You have: 3 Feels Safe at Home: Yes Safety Concerns: Feels Safe At This Time caffeine: Yes during the past year weight has: remained stable Dental Care, Regularly: Yes Physical Activity Frequency: Daily Physical Activity Frequency Comment: walking Seatbelt Use: always Sunscreen Use: No Assistive Devices: Walker Assistive Devices Comment: READING GLASSES Review of Systems Review of Systems: All systems reviewed & are unremarkable except as noted in Subjective Physical Exam Physical Exam: Vital signs are stable. GENERAL: Patient in no acute distress. HEENT: Head is atraumatic, normocephalic. EOM's intact. Facies symmetric. No perioral cyanosis. NECK: No JVD. JVP is at the level of the clavicle sitting upright. Carotid upstrokes are + 2 bilaterally. No bruits are noted. CHEST/LUNGS: Increased A:P diameter. Clear to auscultation throughout all lung flores. No wheezes, rales, or crackles. CVS: S1 and S2 are regular without obvious murmurs, gallops, or rubs. PMI is nondisplaced. No lifts, heaves, or thrills. No abdominal aortic or renal bruits. ABDOMINAL EXAM: Bowel sounds are present. No masses, organomegaly, or ten derness. EXTREMITIES: No clubbing or cyanosis. No edema. Intact posterior tibial and radial pulses bilaterally. Right knee is dressed with a surgical drain in place. NEUROLOGIC EXAM: Patient is awake, alert, and oriented. Pleasant and cooperative. Answers questions appropriately. Speech is clear. Normal movement in all 4 extremities. Gait pattern was not assessed. Total output from drain 675 ml of bloody drainage. Results & Data Results & Data ([facility]) Vital Signs (Past 12 Hours) Vital Signs Temp Pulse Resp BP Pulse Ox 08/13/20 08:13 36.8 C 56 L 17 131/77 98 08/13/20 03:03 36.5 C 55 L 16 113/65 93 Laboratory Results Laboratory Results - last 24 hr 08/13/20 08/13/20 05:59 05:59 WBC 14.75 H RBC 4.37 L Hgb 13.6 L Hct 39.5 L MCV 90.4 MCH 31.1 MCHC 34.4 RDW Std Deviation 44.7 RDW Coeff of Alexus 13.4 Plt Count 309 MPV 9.6 Sodium 140 Potassium 4.2 Chloride 111 H Carbon Dioxide 24 Anion Gap 5.0 BUN 21 H Creatinine 0.88 Est Cr Clr Drug Dosing 75.6 Est GFR ( Amer) 100.9 Est GFR (Non-Af Amer) 87.0 BUN/Creatinine Ratio 24.1 H Glucose 113 H Calcium 8.2 L Diagnostic Findings RIGHT KNEE X-RAY 08/12/20: -- Alignment of the total right knee arthroplasty is anatomic. -- There is no periprosthetic fracture or unexpected radiopaque foreign body. -- There are drains and skin ellen. IMPRESSION: -- Expected findings following total right knee arthroplasty. Medications Administered Medications cholecalciferol (vitamin D3) 50 mcg (2,000 unit) capsule 2,000 units PO HS #30 cap 01/25/19 [History Confirmed 08/12/20] levothyroxine 100 mcg tablet 100 mcg PO QAM #30 tab 12/10/19 [History Confirmed 08/12/20] pantoprazole 40 mg tablet,delayed release 40 mg PO DAILY #90 tab 06/24/20 [Rx Confirmed 08/12/20] famotidine 40 mg tablet 40 mg PO BID #60 tab 08/10/20 [Rx Confirmed 08/12/20] lisinopril 20 mg tablet 20 mg PO DAILY #90 tab 08/10/20 [Rx Confirmed 08/12/20] acetaminophen 1,000 mg PO Q8 #60 tab 08/13/20 [Rx] aspirin 81 mg PO BID #60 tab 08/13/20 [Rx] celecoxib [Celebrex] 200 mg PO BID #60 cap 08/13/20 [Rx] oxycodone 5 - 10 mg PO .Q4h-6h PRN #30 tab MDD 6 08/13/20 [Rx] Home Medications Acetaminophen (Acetaminophen 500 Mg Tab) 1,000 mg PO Q8 ASH Stop: 09/11/20 21:59 Last Admin: 08/13/20 05:46 Dose: 1,000 mg Documented by: Aspirin (Aspirin 81 Mg Ectab) 81 mg PO BID ASH Stop: 09/11/20 20:59 Last Admin: 08/13/20 08:29 Dose: 81 mg Documented by: Bisacodyl (Bisacodyl 10 Mg Supp) 10 mg GA DAILY PRN PRN Reason: Constipation Stop: 09/11/20 15:57 Docusate Sodium (Docusate Sodium 100 Mg Cap) 100 mg PO BID ASH Stop: 09/11/20 20:59 Last Admin: 08/13/20 08:30 Dose: 100 mg Documented by: Famotidine (Famotidine 40 Mg Tablet) 40 mg PO BID ASH Stop: 09/11/20 20:59 Last Admin: 08/13/20 08:30 Dose: 40 mg Documented by: Hydromorphone HCl (Hydromorphone Inj 0.5 Mg/0.5 Ml Syr) 0.5 mg IV Q4H PRN PRN Reason: Pain or Pre PT Stop: 08/26/20 15:57 Levothyroxine Sodium (Levothyroxine Sodium 100 Mcg Tablet) 100 mcg PO DAILYBB [facility] Stop: 09/12/20 06:29 Last Admin: 08/13/20 05:46 Dose: 100 mcg Documented by: Lisinopril (Lisinopril 20 Mg Tab) 20 mg PO DAILY [facility] Stop: 09/12/20 08:59 Last Admin: 08/13/20 08:29 Dose: 20 mg Documented by: Magnesium Hydroxide (Magnesium Hydroxide Susp 30 Ml Udc) 30 ml PO Q6H PRN PRN Reason: Constipation Stop: 09/11/20 15:57 Multivitamins (Multivitamin Tab) 1 tab PO QAM [facility] Stop: 09/12/20 08:59 Last Admin: 08/13/20 08:29 Dose: 1 tab Documented by: Naloxone HCl (Naloxone Hcl 0.4 Mg/1 Ml Vial/Carp) 0.1 mg IV Q5M PRN PRN Reason: Oversedation/Resp Depression Stop: 09/11/20 15:57 Ondansetron HCl (Ondansetron Inj 2 Mg/Ml 2 Ml Vial) 4 mg IV Q6H PRN PRN Reason: Nausea And Vomiting Stop: 09/11/20 15:57 Oxycodone HCl (Oxycodone Hcl Ir 5 Mg Tab (Immediate Release)) 5 - 10 mg PO Q4H PRN PRN Reason: Pain or Pre PT Stop: 08/26/20 15:57 Pantoprazole Sodium (Pantoprazole 40 Mg Tab) 40 mg PO DAILY [facility] Stop: 09/12/20 08:59 Last Admin: 08/13/20 08:30 Dose: 40 mg Documented by: Sennosides (Senna 8.6 Mg Tab) 17.2 mg PO HS [facility] Stop: 09/11/20 20:59 Last Admin: 08/12/20 20:15 Dose: 17.2 mg Documented by: Vitamin D (Cholecalciferol 1,000 Units 25 Mcg Tab) 2,000 units PO HS [facility] Stop: 09/11/20 20:59 Last Admin: 08/12/20 20:14 Dose: 2,000 units Documented by: PG Care Time/CCT Total # of Minutes Spent Total Time Spent with Patient: Total time spent is greater than 50% in coordination of care (as documented) at patient's floor/unit and/or counseling patient:25 Coding Level of Care Code 38575 Inpt Consult Level 4 Diagnoses S/P total knee arthroplasty Z96.651 Laterality: right Left bundle branch block I44.7 Postoperative anemia D64.9 Benign essential hypertension I10 Postoperative hypothyroidism E89.0 Prediabetes R73.03 Time Spent (min) 40 (1) S/P total knee arthroplasty Laterality: right Qualified Code(s): Z96.651 - Presence of right artificial knee joint
[2020-08-13] MEDS: CHOLECALCIFEROL 1,000 UNITS 25 MCG TAB PO SCH (21:05)
[2020-08-13] MEDS: SENNA 8.6 MG TAB PO SCH (21:06)
[2020-08-14] MEDS: LEVOTHYROXINE SODIUM 100 MCG TABLET PO SCH (05:16)
[2020-08-14] MEDS: ACETAMINOPHEN 500 MG TAB PO SCH (05:17)
--- NOTE | 2020-08-14 07:04 | Orthopedic Progress Note ---
Date of Service August 14, 2020 Assessment & Plan (1) S/P total knee arthroplasty: POD#2 Right TKA -PT/OT -Pain management -DVT prophylaxis-SCDs,. TEDs, ASA 81mg BID -D/C planning-home with HHPT, discharge today. Admission and Anticipated Discharge Date Admission Date: August 12, 2020 Subjective Patient is POD#2 from right TKA. He is doing well this morning, pain well controlled. Has done well with PT. Denies chest pain, sob, headache, fever, n/v/d. Foot numbness and weakness has resolved Review of Systems Review of Systems: All systems reviewed & are unremarkable except as noted in HPI & below Physical Exam Physical Exam: Right knee dressing is c/d/i. MADELAINE in place. Hemovac dressing c/d/i. Mild weakness with dorsiflexion has resolved, toes are mobile. No calf tenderness. Distally n/v status and sensation are intact. Constitutional: well developed and well nourished; no acute distress Results & Data ([facility]) Vital Signs (Past 12 Hours) Vital Signs Temp Pulse Resp BP Pulse Ox 08/14/20 06:26 36.8 C 64 20 133/75 96 08/13/20 22:48 36.5 C 55 L 20 117/70 96 (1) S/P total knee arthroplasty Laterality: right Qualified Code(s): Z96.651 - Presence of right artificial knee joint
[2020-08-14] MEDS: ASPIRIN 81 MG ECTAB PO SCH (08:17)
[2020-08-14] MEDS: DOCUSATE SODIUM 100 MG CAP PO SCH (08:18)
[2020-08-14] MEDS: FAMOTIDINE 40 MG TABLET PO SCH (08:18)
[2020-08-14] MEDS: MULTIVITAMIN TAB PO SCH (08:18)
[2020-08-14] MEDS: lisinopril 20 MG TAB PO SCH (08:18)
[2020-08-14] MEDS: PANTOprazole 40 MG TAB PO SCH (08:18)
--- NOTE | 2020-08-20 09:01 | Discharge Summary ---
Date of Service August 20, 2020 Admission HPI Per Admitting Provider 69 year old male with PMHx significant for HTN, hx of thyroid Ca with hypothyroidism post thyroidectomy, GERD, HTN, OA who presents with ongoing right knee pain. Pain is interfering with his daily activities. He has failed conservative measures including anti-inflammatories and injections. He would like to proceed with knee replacement. Patient denies headaches, sweats, fevers, chills, double vision, blurred vision, cough, sore throat, dysphagia, chest pain, sob, wheezing, n/v/d/c, numbness, tingling, fatigue, urinary symptoms, mood disorders. ROS positive for right knee pain and stiffness. Admission Exam Per Admitting Provider Physical Exam Constitutional: well developed and well nourished; no acute distress Eyes: PERRL, conjunctivae normal, anicteric sclerae ENMT: external ear and nose normal, oropharynx normal Neck: trachea midline, no thyromegaly Respiratory: normal respiratory effort, lungs clear to auscultation Cardiovascular: RRR, no murmur, no edema Musculoskeletal: Right knee: Varus alignment. Mild effusion. Tenderness medial joint line and medial patellar facet, lateral patellar facet. Moderate crepitus with ROM. ROM is 0-90 degrees. Positive Rich's. Stable to valgus and varus stress. Skin: no rashes, warm and dry Neurologic: patellar DTR's 2+ bilat, sensation intact Psychiatric: A+Ox3, euthymic affect Principal Diagnosis Right knee osteoarthritis Discharge Exam Assessment & Plan (1) S/P total knee arthroplasty: POD#2 Right TKA -PT/OT -Pain management -DVT prophylaxis-SCDs,. TEDs, ASA 81mg BID -D/C planning-home with HHPT, discharge today. Admission and Anticipated Discharge Date Admission Date: August 12, 2020 Subjective Patient is POD#2 from right TKA. He is doing well this morning, pain well controlled. Has done well with PT. Denies chest pain, sob, headache, fever, n/v/d. Foot numbness and weakness has resolved Review of Systems Review of Systems: All systems reviewed & are unremarkable except as noted in HPI & below Physical Exam Physical Exam: Right knee dressing is c/d/i. MADELAINE in place. Hemovac dressing c/d/i. Mild weakness with dorsiflexion has resolved, toes are mobile. No calf tenderness. Distally n/v status and sensation are intact. Constitutional: well developed and well nourished; no acute distress Results & Data ([facility]) Vital Signs (Past 12 Hours) Vital Signs Temp Pulse Resp BP Pulse Ox 08/14/20 06:26 36.8 C 64 20 133/75 96 08/13/20 22:48 36.5 C 55 L 20 117/70 96 Discharge Data Allergies Allergy/AdvReac Type Severity Reaction Status Date / Time No Known Drug Allergies Allergy Verified 08/12/20 10:05 Consultations 08/07/20 13:30 Consult Hospitalist Routine Procedures Performed Operation Date: 08/12/20 11:40 Actual Procedures p Right Total Knee Arthroplasty(Right) - Torrey Beck MD Ordered Studies 08/12/20 05:00 US - OR guided needle placemen Routine Hospital Course (1) Osteoarthritis of right knee: Patient was admitted on above-noted date and had the above-noted surgery performed which he tolerated well.On his first postoperative day, he was doing well in the morning and pain was controlled. He had no complaints. Dressing was clean, dry, and intact. He had mild weakness with dorsiflexion and toes were mobile. Calves are soft nontender. Sensation was intact. Hemovac drainage was 225 cc by late morning. He was started on PT and OT protocols and continued on DVT prophylaxis and pain management. By his second postoperative day, he was continuing to remain stable. Madelaine dressing was clean, dry, and intact. His mild weakness with dorsiflexion had resolved. Calves are soft nontender neurovascular was intact. Hemoglobin was stable. He was progressing well with his physical therapy. Vital signs were remaining stable and was felt he can be discharged home. Total Time Total Time Spent Total Time Spent (In Minutes): 5 Discharge Plan Discharge Items Patient Disposition: Home - Home Health Services Reason For Visit: Right Knee Primary Osteoatrhritis Discharge Diagnosis: Right knee osteoarthritis Activity: Per Instructions section Non-emergency contact: Surgeon Call non-emergency contact if: you have any medication questions, your pain is not controlled, your pain is worsening, your pain is unusual for you, you have a fever, your temperature is above 101, your wound has increased redness, your wound has increased drainage and your wound pain has increased Follow-up/Referrals: Michell Romeo, DO [Primary Care Provider] - Diet: Regular Addtl Attending Provider Instructions: ACTIVITY RECOMMENDATIONS: SELF CARE INSTRUCTIONS AFTER TOTAL KNEE REPLACEMENT A. You may need to continue a physical therapy program after discharge from the hospital. There are several options available to you. Your doctor will assist you in selecting the best one for you. 1. An out-patient facility 2 to 3 times a week for therapy or home therapy. 2. Continue working on all exercises taught to you in the hospital. Your goals should be to increase bending of your knee to 90 degrees and beyond and to fully straighten your knee. B. You may progress at your own pace from walking with a walker or crutches to a cane; then to no assistive devices. C. Make walking a part of your daily routine. Be up as much as comfortable with rest periods throughout the day. Rest with leg elevation is very important. Use the ice wrap frequently for the first 3-4 weeks. D. There are no restrictions on activities. You may ride in a car, shop, par ticipate in life enrichment assistant and all social activities. E. Wear the long elastic stockings (MONSERRAT hose) 20 hours a day for 2 weeks after surgery. They can be removed several times a day for laundering and for a bath. F. You may shower, no tub baths until cleared by your doctor. SPECIAL CARE INSTRUCTIONS: VERY IMPORTANT TO READ AND REVIEW A. There are a few signs you need to watch for after you are home. Call [facility] if you notice any of the followin. Increased severe knee pain. Some pain is expected especially when you exercise. 2. Increased swelling in your leg or knee; pain or swelling of the calf muscle in either lower leg. 3. Any fluid drainage from the incision. 4. Shortness of breath or chest pain. B. Please call [facility] at if you have any concerns or questions about your operation or recovery. The doctor or his nurse will return your call promptly. C. You must take antibiotics before dental work, bladder, bowel or other surgery. Your doctor will provide you with a permanent care to carry describing this precaution. IMPORTANT: * REMEMBER TO TAKE ASPIRIN, 81 MG, TWICE DAILY FOR 4 WEEKS UNLESS OTHERWISE DIRECTED. THIS IS YOUR BLOOD THINNER. * HIGH RISK PATIENTS MAY BE PRESCRIBED A STRONGER BLOOD THINNER. THIS WILL BE PROVIDED AT DISCHARGE. * CALL IF INCREASED PAIN, REDNESS, DRAINAGE OR FEVER GREATER THAT 101. * WEAR MONSERRAT HOSE 20 HOURS PER DAY FOR 2 WEEKS. This is a large suction dressing covering your incision. This will help pull any excess drainage from the wound and allow your incision to heal properly. You may shower with this if you can keep the unit outside of the shower. If any bleeding or leakage is noted please call your doctor's office. This will remain on your incision for 7 days and then should be removed. This can be done yourself or by the home nursing staff if applicable. The entire unit is disposable once removed. Once removed, keep incision clean and dry. If redness or drainage is noted, please call your surgeon. . IF INCISION IS LEAKING THROUGH DRESSING, CALL THE OFFICE . FOLLOW UP VISIT: If appointment is not already scheduled: Please call [facility] to make a follow-up appointment for 2 weeks after your surgery at . Pending Studies at Discharge: No Stand-Alone Forms: [facility], Opioid Pain Management, Smoking Cessation Medications and DC Order Prescriptions: New acetaminophen 500 mg Tablet 1,000 mg PO Q8 Qty: 60 RF: 0 aspirin 81 mg Tablet,Delayed Release (Dr/Ec) 81 mg PO BID Qty: 60 RF: 0 oxycodone 5 mg Tablet 5 - 10 mg PO .Q4h-6h MDD 6 PRN (Reason: pain) Qty: 30 RF: 0 celecoxib [Celebrex] 200 mg capsule 200 mg PO BID Qty: 60 RF: 0 Continued pantoprazole 40 mg tablet,delayed release (DR/EC) 40 mg PO DAILY Qty: 90 RF: 1 cholecalciferol (vitamin D3) 2,000 unit capsule 2,000 units PO HS Qty: 30 RF: 0 levothyroxine 100 mcg tablet 100 mcg PO QAM Qty: 30 RF: 0 famotidine 40 mg tablet 40 mg PO BID Qty: 60 RF: 2 lisinopril 20 mg tablet 20 mg PO DAILY Qty: 90 RF: 3 Discharge Orders: Discharge Order (Routine); Ordered 08/14/20 Ordered By: Damian Swan/Other Patient Handouts: DVT Post Op Prevention, Total Knee Replacement, Celecoxib capsules, Oxycodone tablets or capsules Admission Data Admit Date/Time: 08/12/20 14:45 Attending Provider: Herber Orr Admit Provider: Torrey Beck Primary Care Provider: Michell Romeo Other Providers: Mt Rahman Other Interventions: Discharge Summary Assessment (RN) Last Done: 08/14/20 08:37
== END 2020-08-14 11:10 | disposition home health service (06) | DRG 470 ==
LOC: 3E 09:32 → ASU 09:32 → OBSVTOIN 14:45